=== PATIENT | female | born 1985 | race African-American/Black ===

== ENCOUNTER 2019-11-02 07:50 | Inpatient (IN) | payer OTHER ==
[2019-11-02] MEDS: ELECTROLYTE-148 SOLN 1,000 ML IV SCH ×2 (08:00→10:00)
[2019-11-02 08:52] VITALS: BMI 37.8
[2019-11-02] MEDS ORDERED: CITRIC ACID/SODIUM CITRATE 30 ML UNIT-DOSE CUP PO ONE (09:49)
--- NOTE | 2019-11-02 09:55 | HP ---
Past Medical History - Primary Care Physician PCP:: Birdie Epstein - Admission Chief Complaint: previous c/s x 2. admitted for rpt c/s x 3 History of Present Illness: 34 yo edc 11/08/2019 ega 39 weeks admitted to for rpt c/s x 3 History Source: Patient Limitations to Obtaining History: No Limitations - Past Medical History Pulmonary: Yes: Asthma ...: 3 ...Para: 2 ...Term: 2 ...: 0 ...Spon : 0 ...Induced : 0 ...Living Children: 2 ...Multiple Gestation: 0 ...LMP: 01/31/19 ... Weeks Gestation by Dates: 39.0 ...EDC by Dates: 11/08/19 ...EDC by Sono: 11/08/19 - Past Surgical History Past Surgical History: Yes: (x 2) - Smoking History Smoking history: Never smoked Have you smoked in the past 12 months: No - Alcohol/Substance Use Hx Alcohol Use: No History of Substance Use: reports: None - Social History Usual Living Arrangement: Yes: With Spouse ADL: Independent History of Recent Travel: No Home Medications - Allergies Allergies/Adverse Reactions: Allergies Allergy/AdvReac Type Severity Reaction Status Date / Time No Known Allergies Allergy Verified 11/02/19 08:07 - Home Medications Home Medications: Ambulatory Orders Pnv No.95/Ferrous Fum/Folic AC [ Vitamin Tablet] 1 tab PO DAILY 09/03/19 Albuterol Sulfate Inhaler - [Ventolin Hfa Inhaler -] 1 - 2 inh PO Q4H PRN 11/02/19 Docusate Sodium [Colace] 100 mg PO BID PRN 20 Days capsule 11/03/19 Ferrous Sulfate [Feosol] 325 mg PO DAILY #30 tablet 11/03/19 Ibuprofen [Motrin -] 600 mg PO QID PRN #28 tablet 11/03/19 Family Medical History Family Hx Cardiac Disorders: Mother, Father Review of Systems - Review of Systems Constitutional: reports: No Symptoms Eyes: reports: No Symptoms HENT: reports: No Symptoms Neck: reports: No Symptoms Cardiovascular: reports: No Symptoms Respiratory: reports: No Symptoms Gastrointestinal: reports: No Symptoms Genitourinary: reports: No Symptoms Breasts: reports: No Symptoms Reported Musculoskeletal: reports: No Symptoms Integumentary: reports: No Symptoms Neurological: reports: No Symptoms Endocrine: reports: No Symptoms Hematology/Lymphatic: reports: No Symptoms Psychiatric: reports: No Symptoms Physical Exam - Maternity Vital Signs: Vital Signs Temperature 98.1 F 11/02/19 08:06 Pulse Rate 91 H 11/02/19 08:06 Respiratory Rate 18 11/02/19 08:06 Blood Pressure 131/58 L 11/02/19 08:06 O2 Sat by Pulse Oximetry (%) Constitutional: Yes: Well Nourished, No Distress Eyes: Yes: WNL HENT: Yes: WNL Neck: Yes: WNL Cardiovascular: Yes: WNL Lungs: Clear to auscultation Breast(s): Yes: WNL - Abdominal Exam/OB Number of Fetuses: Single Presentation: Vertex Contractions: No Regularity: Irritability Intensity: Unaware Monitor Mode: External Heart Rate Location: [facility] Category: I Accelerations: Uniform Decelerations: None - Vaginal Exam/OB Vaginal Bleeding: No Amniotic Membrane Status: Intact Presentation: Vertex/Position Station: -2 - Physical Exam Musculoskeletal: Yes: WNL Extremities: Yes: WNL Edema: Yes Edema: LLE: 1+, RLE: 1+ Integumentary: Yes: WNL Deep Tendon Reflex Grade: Normal +2 ...Motor Strength: WNL Psychiatric: Yes: WNL Hemorrhage Risk Assessment - Risk Factors Medium Risk Factors: Yes: Prior , uterine surgery,or multiple laparotomies, Obesity (BMI >40) Risk Score: 2 Risk Level: High Risk Assessment/Plan: high risk Problem List - Problems (1) 39 weeks gestation of Code(s): Z3A.39 - 39 WEEKS GESTATION OF (2) Previous delivery affecting , antepartum Code(s): O34.219 - MATERNAL CARE FOR UNSP TYPE SCAR FROM PREVIOUS DEL (3) Obesity (BMI 35.0-39.9 without comorbidity) Code(s): E66.9 - OBESITY, UNSPECIFIED Assessment/Plan Admit to LD Cesarian delivery
[2019-11-02] MEDS ORDERED: ceFAZolin SODIUM 1 GM VIAL ONE (10:05)
[2019-11-02] MEDS ORDERED: DEXAMETHASONE SOD PHOSPHATE 4 MG/1 ML VIAL ONE (10:05)
[2019-11-02] MEDS ORDERED: morphine SULFATE/PF 0.5 MG/ML (2cc Syringe - QUVA) ONE (10:05)
[2019-11-02] MEDS ORDERED: ceFAZolin SODIUM 1 GM VIAL IVPB ONE (10:32)
[2019-11-02] MEDS ORDERED: OXYTOCIN 10 UNITS/ML VIAL ONE ×2 (11:12)
[2019-11-02] MEDS ORDERED: ONDANSETRON 4 MG/2 ML VIAL IVPUSH PRN (11:37)
[2019-11-02] MEDS ORDERED: ACETAMINOPHEN 1000 MG/100 ML VIAL (NON FORMULARY) IVPB PRN (11:38)
[2019-11-02 11:51] LABS: ARTERIAL BLD GAS O2 SATURATION 17.4 mmHg (95-98); ARTERIAL BLOOD GAS BASE EXCESS -1.9 mmol/L (-2-2); ARTERIAL BLOOD GAS pH 7.299 (7.350-7.450)
[2019-11-02 11:52] VITALS: RESP 14; O2SAT 100
[2019-11-02] MEDS ORDERED: METHYLERGONOVINE MALEATE 0.2 MG/1 ML AMP IM PRN (11:58)
[2019-11-02 12:04] LABS: VENT MODE 1114
[2019-11-02 12:05] LABS: ARTERIAL BLOOD GAS PO2 15.5 mmHg (80-100)
[2019-11-02 12:08] LABS: VENOUS BASE EXCESS -2.4 mmol/L (-2-2); VENOUS O2 SATURATION 49.4 % (70-80); VENOUS PCO2 45.1 mmHg (38-52); VENOUS PH 7.337 (7.310-7.410)
--- NOTE | 2019-11-02 12:11 | OP ---
Operative Note - Note: Operative Date: 11/02/19 Operation: 34 yo @ 39 weeks Previous cesarian section x 2 Findings: baby boy born 9/9 delayed cord clamp CAN x 1 cord gases collected Placenta and membranes complete Post-Operative Diagnosis: Same as Pre-op Surgeon: Birdie Epstein Tool Inspector: Aleisha Nolasco Anesthesiologist/ACT TUTOR: America Krueger Anesthesia: Spinal Specimens Removed: placenta and membranes Estimated Blood Loss (mls): 700 Fluid Volume Replaced (mls): 1,000 Operative Report Dictated: No
[2019-11-02] MEDS: IBUPROFEN 800 MG/8 ML IJ IVPB PRN ×2 (12:45→23:13)
[2019-11-02] MEDS: OXYTOCIN 20 UNITS in 0.9% NS 20 UNIT/1,000 ML INFUS.BAG IV SCH (14:00)
[2019-11-02] MEDS: CEFAZOLIN 1 GM/D5W 1 GM/50 ML BAG IVPB SCH (18:07)
[2019-11-03] MEDS: SENNOSIDES/DOCUSATE COMBO (SENNA PLUS) TABLET (UD) PO PRN ×2 (02:51→22:13)
[2019-11-03] MEDS: CEFAZOLIN 1 GM/D5W 1 GM/50 ML BAG IVPB SCH ×2 (02:51→09:04)
[2019-11-03] MEDS: IBUPROFEN 800 MG/8 ML IJ IVPB PRN (06:59)
--- NOTE | 2019-11-03 08:17 | PN ---
Progress Note (short form) - Note Progress Note: Anesthesia/Pain Pt seen and examined S:Alert and awake comfortable O: Vital Signs Temperature 97.5 F L 11/03/19 06:00 Pulse Rate 65 11/03/19 06:00 Respiratory Rate 18 11/03/19 06:00 Blood Pressure 91/56 L 11/03/19 06:00 O2 Sat by Pulse Oximetry (%) 95 11/02/19 22:00 A/P s/p c section Doing well post op Continue current care Eduard Mccall
[2019-11-03] MEDS: ACETAMINOPHEN 325 MG TABLET (FP) PO PRN ×3 (09:05→22:10)
[2019-11-03] MEDS: ENOXAPARIN NA (PORCINE) 40 MG/0.4 ML DISP.SYRIN SQ SCH (09:05)
[2019-11-03] MEDS: SIMETHICONE 80 MG TAB.CHEW (FP) PO PRN ×3 (09:06→22:12)
[2019-11-03 09:17] LABS: BASO % 0.3 % (0-2.0); EOS % 1.2 % (0-4.5); HEMATOCRIT 29.6 % (32.4-45.2); HEMOGLOBIN 9.4 GM/dL (10.7-15.3); LYMPH % 22.3 % (8-40); MCH 25.8 pg (25.7-33.7); MCHC 31.9 g/dl (32.0-36.0); MEAN PLT VOLUME 10.8 fl (7.5-11.1); MONO % 7.4 % (3.8-10.2); NEUT % 68.8 % (42.8-82.8); PLATELET COUNT 190 K/MM3 (134-434); RBC 3.66 M/mm3 (3.60-5.2); RDW 14.5 % (11.6-15.6); WHITE BLOOD COUNT 11.4 K/mm3 (4.0-10.0)
--- NOTE | 2019-11-03 10:55 | PN ---
Post Progress Note Type of Delivery: Repeat C/S Vital Signs: Vital Signs Temperature 98.1 F 11/03/19 09:10 Pulse Rate 72 11/03/19 09:10 Respiratory Rate 19 11/03/19 10:00 Blood Pressure 98/56 L 11/03/19 09:10 O2 Sat by Pulse Oximetry (%) 97 11/03/19 09:10 Breast Exam: Yes: Soft Uterus: Yes: Fundus Firm, Fundus @ umbilicus Incision: Yes: Dressing dry and intact Abdomen/GI: Yes: Abdomen soft, Tender Lochia: Yes: Rubra Lochia, amount: Small Extremities: Yes: Calves non-tender - Labs Labs: CBC WBC 11.4 K/mm3 (4.0-10.0) H 11/03/19 08:27 RBC 3.66 M/mm3 (3.60-5.2) 11/03/19 08:27 Hgb 9.4 GM/dL (10.7-15.3) L 11/03/19 08:27 Hct 29.6 % (32.4-45.2) L 11/03/19 08:27 MCV 81.0 fl (80-96) 11/03/19 08:27 MCH 25.8 pg (25.7-33.7) 11/03/19 08:27 MCHC 31.9 g/dl (32.0-36.0) L 11/03/19 08:27 RDW 14.5 % (11.6-15.6) 11/03/19 08:27 Plt Count 190 K/MM3 (134-434) 11/03/19 08:27 MPV 10.8 fl (7.5-11.1) 11/03/19 08:27 Absolute Neuts (auto) 7.9 K/mm3 (1.5-8.0) 11/03/19 08:27 Neutrophils % 68.8 % (42.8-82.8) 11/03/19 08:27 Lymphocytes % 22.3 % (8-40) D 11/03/19 08:27 Monocytes % 7.4 % (3.8-10.2) 11/03/19 08:27 Eosinophils % 1.2 % (0-4.5) 11/03/19 08:27 Basophils % 0.3 % (0-2.0) 11/03/19 08:27 Nucleated RBC % 0 % (0-0) 11/03/19 08:27 Problem List - Problems (1) 39 weeks gestation of Code(s): Z3A.39 - 39 WEEKS GESTATION OF (2) Previous delivery affecting , antepartum Code(s): O34.219 - MATERNAL CARE FOR UNSP TYPE SCAR FROM PREVIOUS DEL (3) Obesity (BMI 35.0-39.9 without comorbidity) Code(s): E66.9 - OBESITY, UNSPECIFIED Assessment/Plan May ambulate
[2019-11-03] MEDS: oxyCODONE HCL 5 MG TABLET PO PRN ×3 (11:38→22:11)
[2019-11-03] MEDS ORDERED: BISACODYL 10 MG SUPP.RECT RC PRN (11:59)
[2019-11-03] MEDS: OXYTOCIN 20 UNITS in 0.9% NS 20 UNIT/1,000 ML INFUS.BAG IV SCH (17:47)
[2019-11-03] MEDS: IBUPROFEN 600 MG TABLET (FP) PO PRN ×2 (18:13→22:11)
[2019-11-04] MEDS: oxyCODONE HCL 5 MG TABLET PO PRN ×3 (01:40→10:50)
[2019-11-04] MEDS: SIMETHICONE 80 MG TAB.CHEW (FP) PO PRN ×3 (01:40→10:51)
[2019-11-04] MEDS: ACETAMINOPHEN 325 MG TABLET (FP) PO PRN ×3 (01:41→10:50)
--- NOTE | 2019-11-04 02:30 | DS ---
Physical Exam-ARBITRATOR Vital Signs: Vital Signs Temperature 98.1 F 11/03/19 22:00 Pulse Rate 76 11/03/19 22:00 Respiratory Rate 18 11/03/19 22:00 Blood Pressure 107/72 11/03/19 22:00 O2 Sat by Pulse Oximetry (%) 97 11/03/19 17:22 Constitutional: Yes: Well Nourished Eyes: Yes: WNL HENT: Yes: WNL Neck: Yes: WNL Cardiovascular: Yes: WNL Respiratory: Yes: WNL Gastrointestinal: Yes: WNL Renal/: Yes: WNL ....Post : Yes: Uterus firm, Moderate lochia rubra Breast(s): Yes: WNL Musculoskeletal: Yes: WNL Extremities: Yes: WNL Edema: Yes Edema: LLE: 1+, RLE: 1+ Integumentary: Yes: WNL Wound/Incision: Yes: Clean/Dry, Sutures Intact Neurological: Yes: WNL ...Motor Strength: WNL Psychiatric: Yes: WNL Labs: CBC, BMP 11/03/19 08:27 Delivery - Delivery Section: Repeat, Low Flap Transverse Type of Anesthesia: Spinal Episiotomy/Laceration: None Delivery, Single - Stages of Labor Date of Delivery: 11/02/19 Time of Delivery: 10:49 Time Placenta Delivered: 10:51 - Condition of Infant Glaze Wiper/Child Welfare Specialist Present: Yes Name: Liyah Jacobsen Gender: Male Weight: 3.345 kg Total Hours ROM (Hrs/Mins): 0hrs 3min - 1 Minute Total Score: 9 5 Minutes Total Score: 9 - Feeding Plan Initial Plan: Elected not to breastfeed exclusively throughout hospitalization Discharge Summary Problems reviewed: Yes Reason For Visit: C SECTION Current Active Problems 39 weeks gestation of (Acute) Obesity (BMI 35.0-39.9 without comorbidity) (Acute) Previous delivery affecting , antepartum (Acute) Hospital Course: good Condition: Good - Instructions Diet, Activity, Other Instructions: Regular diet Activity as tolerated F/U in 1 wk for staple removal - Home Medications Comprehensive Discharge Medication List: Ambulatory Orders Pnv No.95/Ferrous Fum/Folic AC [ Vitamin Tablet] 1 tab PO DAILY 09/03/19 Albuterol Sulfate Inhaler - [Ventolin Hfa Inhaler -] 1 - 2 inh PO Q4H PRN 11/02/19 Docusate Sodium [Colace] 100 mg PO BID PRN 20 Days capsule 11/03/19 Ferrous Sulfate [Feosol] 325 mg PO DAILY #30 tablet 11/03/19 Ibuprofen [Motrin -] 600 mg PO QID PRN #28 tablet 11/03/19
[2019-11-04] MEDS: IBUPROFEN 600 MG TABLET (FP) PO PRN ×2 (06:38→10:51)
[2019-11-04] MEDS: ENOXAPARIN NA (PORCINE) 40 MG/0.4 ML DISP.SYRIN SQ SCH (09:42)
[2019-11-04 10:04] VITALS: BP 106/75; PULSE 67; TEMP 98
--- NOTE | 2019-11-07 16:34 | PATH ---
Surgical Pathology Report Patient Name: SHERIN ZIMMERMAN [facility]. Rec. #: [id number] /Age/Gender: 1985 (Age: 34) / F Account: [id number] Location: [facility] OBS/STITCH CLEANER Taken: 11/02/2019 Received: 11/02/2019 Reported: 11/07/2019 Physicians: Birdie Epstein M.D. Specimen(s) Received PLACENTA Clinical History Final Diagnosis PLACENTA, SECTION: 447 G THIRD TRIMESTER PLACENTA WITH TRIVASCULAR UMBILICAL CORD AND UNREMARKABLE PLACENTAL MEMBRANES. Electronically Signed Alethea Campos M.D. Gross Description The specimen is received fresh labeled placenta and is a 447 gram, 17.5 x 15.0 x 2.7 cm. placenta with attached membranes and umbilical cord. The attached membranes are sellers, translucent with focal opacities and insert marginally. The umbilical cord measures 7.5 cm. in length and averages 1 cm. in diameter. The cord inserts eccentrically, 2 cm. to the nearest margin. No true knots or strictures are identified. Cut surface of the umbilical cord reveals 3 vessels. The surface is moffett-blue with minimal fibrin deposition and appropriate caliber vessels. The maternal surface is red-brown with focal defects. Sectioning reveals red-brown, spongy parenchyma. No lesions are identified. Manager [employer] sections are submitted in three cassettes as follows: 1- membrane rolls and umbilical cord; 2-3- full thickness sections of placenta. /11/06/2019 [facility]11/06/2019
== END 2019-11-04 13:35 | disposition home or self-care (01) | DRG 540 ==
LOC: JLDR 07:50 → J3W 13:31
PROVIDERS: ADMIT Obstetrics & Gynecology; ATTEND Obstetrics & Gynecology
PROC: 10D00Z1 Extraction of Products of Conception, Low, Open Approach (ICD-10-PCS; principal; 2019-11-02 10:00)
DX: O34.219 Maternal care for unspecified type scar from previous cesarean delivery (principal); O99.214 Obesity complicating childbirth; O69.81X0 Labor and delivery complicated by cord around neck, without compression, not applicable or unspecified; Z3A.39 39 weeks gestation of pregnancy; Z37.0 Single live birth
CPT/HCPCS: 36415; 36600; 82803; 85025; 88307-TC; 94760; J0131